=== PATIENT | female | born 1995 | race Caucasian/White ===

== ENCOUNTER 2017-01-12 02:58 | Emergency (ER) | payer OTHER ==
[2017-01-12 03:51] LABS: Anion Gap 7 mmol/L (2-11); BUN/Creatinine Ratio 10.8 (8-20); Blood Urea Nitrogen 7 mg/dL (6-24); CO2 Carbon Dioxide 25 mmol/L (22-32); Calcium 9.3 mg/dL (8.6-10.3); Chloride 106 mmol/L (101-111); EGFR Non-African American 117.4 (>60); Glucose 110 mg/dL (70-100); Potassium 3.2 mmol/L (3.5-5.0); Sodium 138 mmol/L (133-145)
[2017-01-12 04:18] LABS: Alcohol 246 mg/dL (<10)
--- NOTE | 2017-01-12 04:56 | ED ---
Iatlo Ramos Adam, scribed for Denis Lira MD on 01/12/17 at 0311 . Substance Abuse/Use - HPI Summary HPI Summary: Pt is a 21 year old female BIBA with EtOH intoxication. Pt states that her friends called EMS because they thought she might be having a seizure. She has a hx of epilepsy. She states that she had 4 rum drinks tonight. She denies using any other substances. According to EMS, the friends witnessed the pt having a seizure 3 days ago. EMS reports that tonight the pt's friends were trying to wake the pt up in a bathtub prior to their arrival. PMHx includes suicide attempt and bulimia. FMHx of alcohol abuse. - History Of Current Complaint Stated Complaint: ANXIETY Hx Obtained From: Patient Onset/Duration of Drug/ETOH Abuse: Hours Ingestion History: Type/Name Of Drug - EtOH, Amount Ingested - 4 rum drinks Overdose Characteristics: Oral Severity Initially: Moderate Severity Currently: Moderate Character: Lethargic Aggravating Factor(s): Nothing Alleviating Factor(s): Nothing - Allergies/Home Medications Allergies/Adverse Reactions: Allergies Allergy/AdvReac Type Severity Reaction Status Date / Time No Known Allergies Allergy Verified 08/29/16 13:04 PMH/Surg Hx/FS Hx/Imm Hx Psychiatric History: Reports: Hx Eating Disorder - BULIMIA (W/O FORMAL DX), Hx Suicide Attempt - STATES WRIST CUTTING WAS ATTEMPT, Other Psychiatric Issues/ Disorders - SIB Denies: Hx of Violent Episodes Against Others - Family History Known Family History: Positive: Other - Alcohol abuse (paternal and maternal grandfathers) Family History: Denies family history of cardiovascular disorders - Social History Occupation: Student Lives: Alone Alcohol Use: Weekly - 4-5 beers, 4-5 times a week---education about alcohol safety provided to patient- Hx Substance Use: No Substance Use Type: Reports: None Hx Tobacco Use: Yes Smoking Status (MU): Light Every Day Tobacco Smoker Type: Cigarettes Amount Used/How Often: 1/2 PPD Have You Smoked in the Last Year: No Review of Systems Negative: Fever Neurological: Other - Possible seizure Positive: Anxious, Other - Alcohol intoxication All Other Systems Reviewed And Are Negative: Yes Physical Exam Triage Information Reviewed: Yes Vital Signs On Initial Exam: Initial Vitals Temp Pulse Resp BP Pulse Ox 97.8 F 99 20 93/73 99 01/12/17 03:06 03/09/17 03:06 01/12/17 03:06 01/12/17 03:06 01/12/17 03:06 Vital Signs Reviewed: Yes Appearance: Positive: No Pain Distress, Thin Skin: Positive: Warm Head/Face: Positive: Normal Head/Face Inspection Eyes: Positive: IMTUL ENT: Positive: Hearing grossly normal Neck: Positive: Supple Respiratory/Lung Sounds: Positive: Breath Sounds Present Cardiovascular: Positive: RRR Abdomen Description: Positive: Nontender, Soft Bowel Sounds: Positive: Present Musculoskeletal: Positive: Strength/ROM Intact Neurological: Positive: Alert, Oriented to Person Place, Time Diagnostics - Vital Signs Vital Signs Temp Pulse Resp BP Pulse Ox 01/12/17 04:00 79 100/52 95 01/12/17 03:30 92 109/73 99 01/12/17 03:28 112/68 01/12/17 03:11 100 99 01/12/17 03:06 97.8 F 99 20 93/73 99 - Laboratory Lab Results: Lab Results 01/12/17 Range/Units 03:30 Sodium 138 (133-145) mmol/L Potassium 3.2 L (3.5-5.0) mmol/L Chloride 106 (101-111) mmol/L Carbon Dioxide 25 (22-32) mmol/L Anion Gap 7 (2-11) mmol/L BUN 7 (6-24) mg/dL Creatinine 0.65 (0.51-0.95) mg/dL Est GFR ( Amer) 151.0 (>60) Est GFR (Non-Af Amer) 117.4 (>60) BUN/Creatinine Ratio 10.8 (8-20) Glucose 110 H (70-100) mg/dL Calcium 9.3 (8.6-10.3) mg/dL Beta HCG, Quant < 0.60 mIU/mL Serum Alcohol 246 H (<10) mg/dL Result Diagrams: 01/12/17 03:30 Lab Statement: Any lab studies that have been ordered have been reviewed, and results considered in the medical decision making process. - Additional Comments Diagnostic Additional Comments: Serum Alcohol - 246 Re-Evaluation - Re-Evaluation First Eval Change: Improved Course/Dx - Diagnoses Provider Diagnoses: Alcohol intoxication Discharge - Discharge Plan Condition: Improved Disposition: HOME The documentation as recorded by the Italo dhillon Adam accurately reflects the service I personally performed and the decisions made by me, Denis Lira MD.
[2017-01-12] MEDS ORDERED: Potassium Chlor TAB* 20 MEQ TAB.ER PO ONE (07:44)
[2017-01-12 09:31] VITALS: BP 103/70
--- NOTE | 2017-01-12 09:43 | ED ---
Joe Ramos Alok, scribed for Jacek Meyers MD on 01/12/17 at 0911 . Re-Evaluation - Re-Evaluation First Eval Change: Improved Course/Dx - Course Course Of Treatment: Pt was discharged by Dr. Lira with instructions to discharge when sober. Now alert and oriented x3. Good and steady walk, sober. Hemodynamically stable. Will discharge with diagnosis of alcohol intoxication. Vital signs: reviewed. General: Patient is comfortable lying in stretcher with no signs of distress. HEENT: within normal limits. Lungs: CTA B/L. CVS: S1 & S2 present. No murmurs appreciated. ABDOMEN: Soft, non-tender. No signs of distention. No rebound no guarding, and no masses palpated. Bowel sounds are normal. EXTREMITIES: FROM in all major joints, no edema, no cyanosis or clubbing. NEURO: Alert and oriented x 3. No acute neurological deficits. Speech is normal and follows commands. SKIN: Dry and warm. She is eating and drinking water w/o nause or vomiting. - Diagnoses Provider Diagnoses: Alcohol intoxication The documentation as recorded by the Joe dhillon Alok accurately reflects the service I personally performed and the decisions made by Luigi hobbs Walter, MD.
== END 2017-01-12 09:30 | disposition home or self-care (01) ==
LOC: ED 02:58
DX: F10.129 Alcohol abuse with intoxication, unspecified (principal); F41.9 Anxiety disorder, unspecified
CPT/HCPCS: 36415; 80048; 80320; 84702; 99283; A9270-GY; G0480

== ENCOUNTER 2018-04-28 13:01 | Emergency (ER) | payer OTHER ==
--- NOTE | 2018-04-28 13:33 | ED ---
- HPI Summary HPI Summary: Patient is a 22-year-old at 30 week female with a due date of presenting to the ED bilateral lower abdominal pain described as cramping and bilateral lower back pain 1 day. Last ultrasound 3-4 weeks ago per patient. Denies any complications with . History of epilepsy, but otherwise healthy. Endorses 3 cigarettes per day and intermittent 1 use. Denies any vaginal bleeding or discharge. Denies any urinary symptoms. Denies diarrhea, constipation. 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 - History of Current Complaint Chief Complaint: EDOBProblems Stated Complaint: ABD PAIN Time Seen by Provider: 04/28/18 13:08 Hx Obtained From: Patient Chief Complaint: Concern for Demise, Pain Onset/Duration: Started Hours Ago, Started Days Ago Timing: Constant Severity: Moderate Current Severity: Moderate Pain Intensity: 6 Location of Pain: Other: - bilateral lower abd pain Character: Cramping Associated Signs and Symptoms: Positive: Negative - Assessment Hx Now: Yes Expected Date of Delivery: 06/29/18 Heart Rate via Doppler: 150 Hx : 1 Hx Para: 0 History of Ectopic : No Hx Pelvic Inflammatory Disease: No Vaginal Bleeding Amount: None Hx Hysterectomy: No History of STI/STD: No - Risk Factors Ovarian Torsion Risk Factor: Reproductive Age - Additional Pertinent History Have You Ever Been Treated for Depression: No - Allergies/Home Medications Allergies/Adverse Reactions: Allergies Allergy/AdvReac Type Severity Reaction Status Date / Time No Known Allergies Allergy Verified 04/28/18 13:06 PMH/Surg Hx/FS Hx/Imm Hx Previously Healthy: Yes Psychiatric History: Reports: Hx Eating Disorder - BULIMIA (W/O FORMAL DX), Hx Suicide Attempt - STATES WRIST CUTTING WAS ATTEMPT, Other Psychiatric Issues/ Disorders - SIB Denies: Hx of Violent Episodes Against Others - Immunization History Hx Pertussis Vaccination: No Immunizations Up to Date: Unable to Obtain/Confirm Infectious Disease History: No Infectious Disease History: Denies: Traveled Outside the [place] in Last 30 Days - Family History Known Family History: Positive: Other - Alcohol abuse (paternal and maternal grandfathers) Family History: Denies family history of cardiovascular disorders - Social History Occupation: Unemployed Lives: With Family Alcohol Use: Weekly Hx Substance Use: No Substance Use Type: Reports: None Hx Tobacco Use: Yes Smoking Status (MU): Light Every Day Tobacco Smoker Type: Cigarettes Amount Used/How Often: 1/2 PPD Have You Smoked in the Last Year: No Review of Systems Constitutional: Negative Negative: Fever, Chills, Fatigue, Skin Diaphoresis Negative: Palpitations, Chest Pain Negative: Shortness Of Breath, Cough Positive: Abdominal Pain Genitourinary: Negative Positive: no symptoms reported, see HPI Skin: Negative Neurological: Negative All Other Systems Reviewed And Are Negative: Yes Physical Exam - Physical Exam Triage Information Reviewed: Yes Appearance: Positive: No Pain Distress, Well-Nourished Skin: Positive: Warm, Skin Color Reflects Adequate Perfusion Head/Face: Positive: Normal Head/Face Inspection Eyes: Positive: EOMI, MITUL, Conjunctiva Clear Neck: Positive: Supple Respiratory/Lung Sounds: Positive: Clear to Auscultation, Breath Sounds Present Cardiovascular: Positive: Pulses are Symmetrical in both Upper and Lower Extremities Abdomen Description: Positive: Nontender - on light palpation bilaterally. Negative: CVA Tenderness (R), CVA Tenderness (L) Musculoskeletal: Positive: Normal, Strength/ROM Intact Neurological: Positive: Alert, Oriented to Person Place, Time, Speech Normal Psychiatric: Positive: Affect/Mood Appropriate Diagnostics - Vital Signs Vital Signs Temp Pulse Resp BP Pulse Ox 04/28/18 13:03 97.9 F 108 16 119/72 99 - Laboratory Lab Statement: Any lab studies that have been ordered have been reviewed, and results considered in the medical decision making process. Course/Dx - Course Course Of Treatment: Assessed patient for possible other pathology is not related to . Denies any tenderness on palpation to the right or left lower quadrants. No CVA tenderness. Believe this to be related discomfort. heart tones obtained and at 150. Vital signs are stable other than a slightly elevated heart rate. Call Dr. Trujillo at 1:25 PM. Patient transferred to OB for further evaluation. - Diagnoses Provider Diagnoses: Abdominal pain affecting Discharge - Sign-Out/Discharge Documenting (check all that apply): Discharge/Admit/Transfer - Discharge Plan Condition: Stable Disposition: TRANSFER TO OB ([facility]) Referrals: Carie Staton RN [Primary Care Provider] - - Billing Disposition and Condition Condition: STABLE Disposition: Transfer to OB ([facility])
[2018-04-28 14:00] LABS: Urine Appearance Cloudy; Urine Blood Negative (Negative); Urine Color Yellow; Urine Ketones Trace (Negative); Urine Protein Negative (Negative); Urine Red Blood Cell 2+(6-10/hpf) (Absent); Urine Specific Gravity 1.023 (1.010-1.030); Urine Urobilinogen Positive (Negative); Urine White Blood Cell 2+(11-20/hpf) (Absent)
[2018-04-28 14:13] VITALS: BP 116/80
== END 2018-04-28 13:39 | disposition other institution (70) ==
LOC: ED 13:01
DX: O26.899 Other specified pregnancy related conditions, unspecified trimester (principal); Z3A.30 30 weeks gestation of pregnancy; F17.210 Nicotine dependence, cigarettes, uncomplicated; M54.5 Low back pain
CPT/HCPCS: 81003; 81015; 87086; 99282

== ENCOUNTER 2018-06-10 21:38 | Inpatient (IN) | payer OTHER ==
[2018-06-10 23:16] LABS: Hematocrit 29 % (35-47); Hemoglobin 9.7 g/dl (12.0-16.0); Mean Corpuscular HGB Conc 33 g/dl (31-36); Mean Corpuscular Hemoglobin 27 pg (27-31); Mean Corpuscular Volume 82 fL (80-97); Platelet Count 266 10^3/ul (150-450); Red Blood Count 3.59 10^6/ul (4.00-5.40); Red Cell Distribution Width 14 % (10.5-15); White Blood Count 15.8 10^3/ul (3.5-10.8)
[2018-06-10] MEDS ORDERED: Nalbuphine* 10 MG/ML 1 ML VIAL IV PRN (23:44)
[2018-06-10] MEDS ORDERED: Penicillin G Potassium IV* 5,000,000 UNITS in NS 0.9% 100 ML* 100 ML IVPB ONE (23:44)
[2018-06-10] MEDS ORDERED: Promethazine INJ(RESTRICTED)* 25 MG/ML 1 ML VIAL IV PRN (23:44)
--- NOTE | 2018-06-10 23:54 | HP ---
General Information - General Information Maternal Age: 22 Grav: 1 Para: 0 SAB: 0 IEA: 0 Estimated Due Date: 07/03/18 Determined By: Early Ultrasound Gestational Age in Weeks/Days: 36+5 Maternal Blood Type and Rh: A Negative - Results this Serology/RPR Result: Non-Reactive Rubella Result: Immune HBsAg Result: Negative HIV Result: Negative Past Medical History Pertinent Past Medical History: See Records Past Medical History Comment: h/o seizure disorder (none since age 20), taking Keppra Depression/anxiety Pertinent Past Surgical History: None Pertinent Family History: See Records - Antepartal Records Antepartal Records: Reviewed, Complicated by: - sz disorder, anx/ depression, smoking, h/o meth abuse (quit with ) Review of Systems Constitutional: Comfortable CV Complaint: No Respiratory: Shortness of Breath: No Gastrointestinal: No Nausea/Vomiting, Normal Bowel Movement Genitourinary: Leaking Fluid, No Dysuria, No Bleeding Musculoskeletal: Contractions - initially mild Neurological: No Headache Movement: Normal Exam Allergies/Adverse Reactions: Allergies No Known Allergies Allergy (Verified 06/10/18 22:31) 124/84, P109, T97.9 Lab Values - Entire Visit: Laboratory Tests 06/10/18 06/10/18 06/10/18 21:45 21:55 23:00 WBC 15.8 H RBC 3.59 L Hgb 9.7 L Hct 29 L MCV 82 MCH 27 MCHC 33 RDW 14 Plt Count 266 MPV 8.0 Vag Amniotic Fld Detect Positive Urine Opiates Screen None detected Ur Barbiturates Screen None detected Ur Phencyclidine Scrn None detected Ur Amphetamines Screen None detected U Benzodiazepines Scrn None detected Urine Cocaine Screen None detected U Cannabinoids Screen None detected Blood Type 06/10/18 23:00 WBC RBC Hgb Hct MCV MCH MCHC RDW Plt Count MPV Vag Amniotic Fld Detect Urine Opiates Screen Ur Barbiturates Screen Ur Phencyclidine Scrn Ur Amphetamines Screen U Benzodiazepines Scrn Urine Cocaine Screen U Cannabinoids Screen Blood Type A Negative - Measurements Height: 4 ft 11 in Weight: 145 lb Weight in lbs: [id number] Body Mass Index (BMI): 29.2 Pre- Weight: 110 lb Weight Gained This : 35 lbs and 0 ozs - Exam Breast: Breast Exam Deferred Heart: Normal Rhythm/Heart Sounds Lungs: Clear Bilaterally Rectal: Rectal Exam Deferred - Abdominal Exam Abdomen Exam: Non-Tender, Fundal Height Consistent with Dates - Ultrasound/Biophysical Profile Ultrasound Status: Not Done Targeted Exam Findings Estimated Weight: 6 lbs Cervical Exam: 2cm Effacement: 90% Station: -1 Presenting Part: Vertex Membrane Status: SROM Amniotic Fluid Evaluation: Gross Rupture, Positive ROM Plus Bleeding/Discharge: None EFM Findings - External Monitor Findings Baseline Heart Rate: 140 External Monitor Findings: Accelerations Present, No Pattern of Variable or Late Decelerations, Variability Moderate Contractions: Irregular, Mild, Moderate Contraction Frequency: Q2-5 min Assessment/Plan - Assessment 22yo G1 at 36+5 wks with PROM at 2100, appears to be getting into labor. Will need PCN for GBS since testing had not been done yet. Pt plans for likely epidural when she is more uncomfortable. Nubain/Phenergan ordered if she desires during early latent labor. Plan pitocin if ctx decrease. - Obstetrical Risk Factors Obstetrical Risk Factors: GBS Unknown, , Substance Abuse, Tobacco Use - Plan Plan: Admit - Anticipate Vaginal Delivery
[2018-06-11] MEDS: Penicillin G Potassium IV* 2,500,000 UNITS in NS 0.9% 100 ML* 100 ML IVPB SCH ×4 (04:08→15:58)
[2018-06-11] MEDS ORDERED: Oxytocin in LR* 20 UNITS/1,000 ML BAG IVPB SCH ×2 (05:00→18:00)
[2018-06-11] MEDS ORDERED: OBEPIDURAL* 250 ML EPIDURAL ONE (05:14)
[2018-06-11] MEDS ORDERED: Sodium Citrate/Citric Acid* 15 ML UDC PO PRN (05:47)
[2018-06-11] MEDS ORDERED: Phenylephrine IV* 40 MCG/ML 10 ML SYRINGE IV PUSH PRN ×2 (05:47)
[2018-06-11] MEDS ORDERED: EPHEDrine (Pressors)* 50 MG/ML VIAL IV PUSH PRN ×2 (05:47)
[2018-06-11] MEDS ORDERED: Famotidine TAB* 20 MG PO PRN (05:47)
[2018-06-11] MEDS ORDERED: OBEPIDURAL* 250 ML EPIDURAL SCH (06:00)
[2018-06-11] MEDS: levETIRAcetam TAB* 500 MG PO SCH ×2 (09:06→21:19)
[2018-06-11] MEDS ORDERED: Dibucaine 1% 28.35 GM TUBE ONE (17:01)
[2018-06-11] MEDS ORDERED: Witch Hazel PAD* JAR ONE (17:01)
[2018-06-11] MEDS ORDERED: Acetaminophen TAB* 325 MG PO PRN (17:06)
[2018-06-11] MEDS ORDERED: Witch Hazel PAD* JAR TOPICAL PRN (17:06)
[2018-06-11] MEDS ORDERED: Dibucaine 1% 28.35 GM TUBE PR PRN (17:06)
[2018-06-11] MEDS ORDERED: Glycerin ADULT SUPP PR PRN (17:06)
--- NOTE | 2018-06-11 17:14 | PROCNOTE ---
[facility] OB: Delivery Note - Delivery A Date of : 06/11/18 Time of : 16:49 Sex: Male Score 1 Minute: 7 Score 5 Minutes: 8 Gestational Age in Weeks and Days at Delivery: 36 Weeks and 6 Days Delivery Method: Spontaneous Vaginal Labor: Spontaneous Did Patient attempt ?: N/A, No Previous Amniotic Fluid: Clear Estimated Blood Loss: 200 Anesthesia/Analgesia: IM/IV, CEI for Labor Delivered By: Jessica Orellana - Nursery Level of Nursery: Regular/Bedside - Perineum Perineal Injury: Abrasion Only - Not Repaired Perineal Repair: None - Events Delivery Events of Note: Pitocin During Labor, Full Course of Antibiotics Delivery Events of Note Comment: left compound hand presentation
[2018-06-11] MEDS ORDERED: Simethicone TAB* 80 MG TAB.CHEW PO SCH (17:30)
[2018-06-11] MEDS: Docusate CAP* 100 MG PO SCH (21:20)
[2018-06-11] MEDS: Ferrous Gluconate TAB* 324 MG TAB PO SCH (21:21)
[2018-06-12 06:52] LABS: ABS Basophils 0 10^3/ul (0-0.2); ABS Eosinophils 0.1 10^3/ul (0-0.6); ABS Lymphocytes 2.5 10^3/ul (1.0-4.8); ABS Monocytes 1.5 10^3/ul (0-0.8); ABS Neutrophils 13.9 10^3/ul (1.5-7.7); ABS Nucleated RBC 0 10^3/ul; Eosinophil % 0.8 % (0-6); Hematocrit 24 % (35-47); Hemoglobin 8.2 g/dl (12.0-16.0); Mean Corpuscular HGB Conc 34 g/dl (31-36); Mean Corpuscular Hemoglobin 27 pg (27-31); Mean Corpuscular Volume 81 fL (80-97); Mean Platelet Volume 7.8 um3 (7.4-10.4); Nucleated Red Blood Cells % 0.1; Platelet Count 194 10^3/ul (150-450); Red Blood Count 3.01 10^6/ul (4.00-5.40); Red Cell Distribution Width 14 % (10.5-15); White Blood Count 18.1 10^3/ul (3.5-10.8)
[2018-06-12] MEDS: Ferrous Gluconate TAB* 324 MG TAB PO SCH ×2 (07:40→21:09)
[2018-06-12] MEDS: Ibuprofen TAB* 600 MG PO PRN ×2 (07:40→13:53)
[2018-06-12] MEDS: Docusate CAP* 100 MG PO SCH ×3 (07:42→21:09)
[2018-06-12] MEDS: levETIRAcetam TAB* 500 MG PO SCH ×2 (07:42→21:09)
[2018-06-13 08:35] VITALS: BP 111/63
[2018-06-13] MEDS: Ferrous Gluconate TAB* 324 MG TAB PO SCH (09:21)
[2018-06-13] MEDS: levETIRAcetam TAB* 500 MG PO SCH (09:21)
[2018-06-13] MEDS: Docusate CAP* 100 MG PO SCH (09:21)
== END 2018-06-13 16:02 | disposition home or self-care (01) | DRG 560 ==
LOC: MCHOBOUT 21:38 → MCHOB 22:48
PROVIDERS: ADMIT Obstetrics & Gynecology; ATTEND Obstetrics & Gynecology
PROC: 10E0XZZ Delivery of Products of Conception, External Approach (ICD-10-PCS; principal; 2018-06-11)
DX: O42.02 Full-term premature rupture of membranes, onset of labor within 24 hours of rupture (principal); O99.334 Smoking (tobacco) complicating childbirth; F17.210 Nicotine dependence, cigarettes, uncomplicated; O99.350 Diseases of the nervous system complicating pregnancy, unspecified trimester; G40.909 Epilepsy, unspecified, not intractable, without status epilepticus; O99.344 Other mental disorders complicating childbirth; F41.8 Other specified anxiety disorders; O32.6XX0 Maternal care for compound presentation, not applicable or unspecified; O90.81 Anemia of the puerperium; D64.9 Anemia, unspecified; Z3A.37 37 weeks gestation of pregnancy; Z37.0 Single live birth
CPT/HCPCS: 36415; 80307; 84112; 85025; 85027; 86850; 86900; 86901; A9270-GY; J2300; J2540; J2550